=== PATIENT | male | born 1965 | race Caucasian/White ===

== ENCOUNTER → 2021-12-24 07:26 | Outpatient (CLI) | payer OTHER, SELFPAY ==
--- NOTE | ~2021-12-24 | XR_ITS ---
EXAMINATION: XR shoulder LT min 2V DATE: 12/24/2021 07:50 INDICATION: Left shoulder pain. TECHNIQUE: 4 views of left shoulder were obtained. COMPARISON: None. FINDINGS: Bone alignment is normal. No fracture. There is mild osteoarthritis of glenohumeral joint a nd severe osteoarthritis of acromioclavicular joint. IMPRESSION: 1. Polyarticular osteoarthritis. Reviewed, dictated and finalized at location A. E TELEVISION PROGRAM DIRECTOR
== END ==
PROVIDERS: PCP Family Medicine; Visit Provider Nurse Practitioner Family
DX: M19.012 Primary osteoarthritis, left shoulder (principal)
CPT/HCPCS: 73030

== ENCOUNTER 2023-07-06 03:45 | Observation (INO) | payer BC, SELFPAY ==
[2023-07-06] VITALS (33 sets, daily range): BP systolic 90–118; BP diastolic 36–64; PULSE 53–75; RESP 12–21; TEMP 35.5–36.5; O2SAT 98–100
--- NOTE | ~2023-07-06 | US_ITS ---
US abdomen limited INDICATION: Chest pain. Elevated bilirubin. PROCEDURE: Realtime right upper abdominal ultrasound. COMPARISON: Ultrasound dated 01/08/2019 FINDINGS: The pancreas is normal without focal mass or pancreatic ductal dilation. Liver echotexture is normal without focal mass or intrahepatic biliary dilatation. There is normal directional flow i n the portal vein. The gallbladder is normal without stones, gallbladder wall thickening or pericholecystic fluid. Comm on bile duct measures 3 mm. No sonographic Billings's sign. IMPRESSION: 1: Normal limited abdominal ultrasound. Reviewed, dictated and finalized at location B.
--- NOTE | ~2023-07-06 | XR_ITS ---
Portable chest x-ray Comparison: 04/12/2007 Clinical History: Chest pain Findings: Lungs are clear, without focal consolidation or pleural effusion. Cardiomediastinal silho uette is stable. Bones and soft tissues are unremarkable. Impression: Normal chest. Reviewed, dictated and finalized at location . Impression: Normal chest.
--- NOTE | 2023-07-06 03:49 | ECG_ITS ---
Measurements Intervals [place] Rate: 54 P: 42 MA: 236 QRS: 9 QRSD: 110 T: 46 QT: 425 QTc: 406 Interpretive Statements SINUS BRADYCARDIA WITH FIRST DEGREE AV BLOCK ST ELEVATION IN ANTEROLAT/HIGH LAT LEADS, PROBABLY EARLY REPOLARIZATION BASELINE WANDER- I, II, III, AVR, AVL, AVF, V1, V4 BORDERLINE ECG NO PREVIOUS ECG AVAILABLE FOR COMPARISON Electronically Signed On 07-06-2023 6:33:37 CDT by Carlyle Ball D.O.
[2023-07-06] MEDS: SODIUM CHLORIDE 0.9% IV 1,000 ML 999 ML IV CONT ×3 (04:18→05:18)
--- NOTE | 2023-07-06 04:26 | PC.NURSE ---
Patient's blood pressure began to drop to 80s/50s. Notified EDP Dr. Mohan who advised to not give the morphine, give another 1,000mL normal saline, and fentanyl 50mcg IVP.
[2023-07-06 04:28] LABS: Basophils Absolute Auto 0.1 K/mm3 (0.0-0.1); Basophils Percent Auto 0.8 % (0.2-1.2); Eosinophils Absolute Auto 0.3 K/mm3 (0-0.3); Eosinophils Percent Auto 1.8 % (0-4.4); Hematocrit 47.1 % (42.0-52.0); Hemoglobin 15.7 g/dL (14.0-18.0); Immature Granulocyte Absolute 0.08 K/mm3 (0.00-0.031); Immature Granulocyte Percent A 0.6 % (0-0.5); Lymphocytes Absolute Auto 2.12 K/mm3 (0.9-3.2); Lymphocytes Percent Auto 14.9 % (18.3-44.2); Mean Corpuscular HGB Conc 33.3 g/dl (32-36); Mean Corpuscular Hemoglobin 29.1 pg (26-34); Mean Corpuscular Volume 87.2 fl (80-100); Mean Platelet Volume 10.9 fl (7.4-10.4); Monocytes Absolute Auto 0.6 K/mm3 (0.1-0.6); Monocytes Percent Auto 4.1 % (2.6-8.5); Neutrophils Absolute Auto 11.1 K/mm3 (1.3-6.7); Neutrophils Percent Auto 77.8 % (45.5-73.1); Platelet Count Result 228 k/mm3 (150-375); White Blood Count 14.3 K/mm3 (4.5-10.0)
[2023-07-06] MEDS: fentaNYL CITRATE INJ (*CRX) 100 MCG/2 ML VIAL 50 MCG IV PUSH (04:29)
[2023-07-06] MEDS: ASPIRIN 81 MG CHEWABLE TABLET 324 MG PO (04:30)
[2023-07-06 04:38] LABS: Alanine Aminotransferase 42 U/L (6-50); Albumin Level 3.9 g/dL (3.5-5.1); Alkaline Phosphatase 59 U/L (38-126); Anion Gap 8 mmol/L (8-16); Aspartate Amino Transferase 72 U/L (17-59); Bilirubin,Total 1.7 mg/dL (0.2-1.3); Blood Urea Nitrogen 19 mg/dL (9-20); Calcium 9.1 mg/dL (8.4-10.2); Carbon Dioxide 25 mmol/L (22-30); Chloride 106 mmol/L (98-107); Estimated CRCL calculation 96 ml/min; Estimated Glomerular Filt Rate > 60; Glucose 132 mg/dL (65-110); Lipase 85 U/L (23-300); Potassium 3.7 mmol/L (3.4-5.0); Sodium 139 mmol/L (137-145)
[2023-07-06 04:39] LABS: INR 1.1; Prothrombin Time 14.4 Seconds (11.1-14.7)
[2023-07-06 04:40] LABS: Partial Thromboplastin Time 22.4 SECONDS (22.3-36.8)
[2023-07-06 04:50] LABS: Troponin I < 0.012 ng/mL (0.000-0.034)
--- NOTE | 2023-07-06 05:11 | ED.GENADULT ---
HPI - General Adult General Chief complaint: Chest Pain Stated complaint: chest pain Time Seen by Provider: 07/06/23 03:56 History of Present Illness HPI narrative: Patient 57-year-old gentleman who presents the emergency department with chief complaint of chest pain. Patient reports that he woke up from sleep this evening was having a sharp pressure sensation in the middle portion of his chest patient reports he got diaphoretic reports that the symptoms were not improved by anything and in fact worsened upon arrival to the emergency department. Patient denies radiation reports no prior history of cardiac disease reports that several years ago he had a cardiac stress test that was negative Related Data Home Medications Medication Instructions Recorded Confirmed multivitamin 1 tablet PO DAILY 06/02/21 01/26/22 polyethylene glycol 3350 17 gram 17 g PO DAILY PRN Constipation 06/02/21 01/26/22 oral powder packet (Miralax) Allergies Allergy/AdvReac Type Severity Reaction Status Date / Time No Known Allergies Allergy Verified 01/25/22 15:16 Review of Systems Review of Systems: A 10 system review of systems was completed on the patient and is negative except for what is stated in the HPI. Nursing and ancillary documentation was reviewed. 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 HEAD: Normocephalic, atraumatic. EYES: PERRLA and EOMI. ENT: Nares clear, no rhinorrhea or epistaxis. Mucous membranes moist. NECK: Supple. CHEST: Clear to auscultation. No respiratory distress. HEART: Regular rate and rhythm. No murmur heard. Normal peripheral pulses. ABDOMEN: Soft, nontender, nondistended, normal active bowel sounds. EXTREMITIES: Normal range of motion. No edema. SKIN: Warm, dry, no rash. NEURO: No focal deficits. Alert and oriented x3. PSYCH: Normal mood and affect. Course Vital Signs Vital signs: Vital Signs Temperature 36.3 C L 07/06/23 03:53 Pulse Rate 56 L 07/06/23 03:53 Respiratory Rate 12 07/06/23 03:53 Blood Pressure 104/61 07/06/23 03:53 Pulse Oximetry 100 07/06/23 03:53 Oxygen Delivery Room Air 07/06/23 03:53 Temperature 35.5 C L 07/06/23 05:52 Pulse Rate 72 07/06/23 05:52 Respiratory Rate 12 07/06/23 05:52 Blood Pressure 93/43 L 07/06/23 05:52 Pulse Oximetry 98 07/06/23 05:52 Oxygen Delivery Room Air 07/06/23 04:[address] [facility] Narrative Medical decision making narrative: Differential diagnosis includes ACS, atypical chest pain, vasovagal episode, electrolyte abnormality, Laboratory studies were obtained and the patient which showed a white blood cell count of 14.3 electrolytes were within normal limits liver enzymes showed a bilirubin of 1.7 and AST of 72 initial troponin is less than 0.012 Chest x-ray showed no evidence of focal infiltrate EKG showed nonspecific ST segment abnormalities with less than [address] elevation and no reciprocal changes. The last EKG we have in the system is from 2019 is
--- NOTE | 2023-07-06 05:14 | PC.NURSE ---
Patient's 2 L of normal saline finished. Patients pressures now in the 90s/60s. Notified EDP Dr. Mohan who verbally ordered another liter of normal saline.
[2023-07-06] MEDS: SODIUM CHLORIDE 0.9% IV 1,000 ML 125 ML IV CONT (06:05)
[2023-07-06 07:16] LABS: Troponin I < 0.012 ng/mL (0.000-0.034)
--- NOTE | 2023-07-06 08:29 | ECG_ITS ---
Measurements Intervals [place] Rate: 59 P: 49 FL: 223 QRS: -1 QRSD: 107 T: 48 QT: 438 QTc: 437 Interpretive Statements SINUS BRADYCARDIA WITH FIRST DEGREE AV BLOCK INCOMPLETE RIGHT BUNDLE BRANCH BLOCK BORDERLINE ECG COMPARED TO ECG 07/06/2023 03:53:22 NO SIGNIFICANT CHANGES Electronically Signed On 07-06-2023 8:37:54 CDT by Carlyle Ball D.O.
[2023-07-06 10:02] LABS: Troponin I < 0.012 ng/mL (0.000-0.034)
--- NOTE | 2023-07-06 12:12 | PC.NURSE ---
Emily, hospitalist, paged and asked about a diet order and cardiology consult. Will await orders.
--- NOTE | 2023-07-06 13:02 | PC.NURSE ---
Hospitalist, Emily, called again as patient is verbalizing request to leave. Education provided and patient agreeing to wait a bit longer to speak to provider.
--- NOTE | 2023-07-06 13:46 | PC.NURSE ---
Pt leaving AMA, PIVx2 removed. Pt educated and hospitalist, Emily, notified
--- NOTE | 2023-07-13 01:13 | PM.EVENT ---
Event Note Event Note Event Note: Patient left AMA at 1350 on 07/06/23. ED requested admission. Patient did not want to stay and wait for bed placement. Tracie Howe RN discussed risks of not staying with patient. AMA paperwork signed and filed. No HPI or exam done by hospitalist.
== END 2023-07-06 15:25 | disposition left against medical advice (07) ==
LOC: ANHED 05:57 → ANHIMU 15:25
PROVIDERS: Admitting Provider Internal Medicine; Emergency Provider Emergency Medicine; PCP Family Medicine; Visit Provider Internal Medicine
DX: R07.9 Chest pain, unspecified (principal); R00.1 Bradycardia, unspecified; I44.0 Atrioventricular block, first degree; I45.10 Unspecified right bundle-branch block; K59.00 Constipation, unspecified; Z79.899 Other long term (current) drug therapy; Z53.29 Procedure and treatment not carried out because of patient's decision for other reasons
CPT/HCPCS: 36415; 71045; 76705; 80053; 83690; 84484; 85025; 85610; 85730; 93005; 96361; 96374; 99285; A9270; G0378; J3010; J7030

== ENCOUNTER 2023-08-01 07:29 | Outpatient (CLI) | payer BC, SELFPAY ==
--- NOTE | ~2023-08-01 | CT_ITS ---
CT of the Abdomen and Pelvis: Indication: Abdominal swelling/mass Technique: 2.5 mm axial scans were obtained through the abdomen and pelvis following intravenous adm inistration of 100 cc of Omnipaque 350. Dose reduction technique was used on this scan by utilizing a utomated exposure control and iterative reconstruction technique. The dose-length product (DLP) was 4 29.52 mGy-cm. Findings: Scans through the lung bases are unremarkable. The liver, spleen, pancreas, gallbladder, adrenals and kidneys are within normal limits. No evidence of aortic aneurysm. No lymphadenopathy. No bowel obstruction or bowel wall thickening. There is no evidence to suggest acute appendicitis. Images through the pelvis were performed. Urinary bladder unremarkable. No pelvic mass seen. Moderate sized fat-containing left inguinal hernia noted. Small fat-containing right inguinal hernia present, which also contains a small amount of fluid. No ascites. Impression: Moderate fat-containing left inguinal hernia. Small fat-containing right inguinal hernia, which also contains a small amount of fluid. Correlate fo r incarceration/strangulation. Reviewed, dictated and finalized at location M. Impression: Moderate fat-containing left inguinal hernia. Small fat-containing right inguinal hernia, which also contains a small amount of fluid. Correlate for incarceration/strangulation.
== END 2023-08-01 07:30 | disposition home or self-care (01) ==
PROVIDERS: PCP Family Medicine; Visit Provider Surgery
DX: R19.09 Other intra-abdominal and pelvic swelling, mass and lump (principal); K40.90 Unilateral inguinal hernia, without obstruction or gangrene, not specified as recurrent
CPT/HCPCS: 74177; Q9967

== ENCOUNTER 2023-08-16 02:02 | Day surgery (SDC) | payer BC, SELFPAY ==
[2023-08-03 14:13] VITALS: BMI 23.1
[2023-08-16 06:18] VITALS: BP 117/74; PULSE 63; RESP 17; TEMP 36.5; O2SAT 98; BMI 23.2
[2023-08-16] MEDS: LACTATED RINGERS 1,000 ML 150 ML IV CONT (06:32)
--- NOTE | 2023-08-16 07:22 | WPDANESEPPF ---
Anes - Initial Pre Proc Eval Procedure: Operation Date: 08/16/23 07:30 Proposed Procedures p Colonoscopy - Adilson Gomez MD Date/Time: 08/16/23 07:22 Surgeon: Adilson Gomez MD Pre Op Diagnosis: hx of colon polyps Patient Data Age: 57 Gender: M Height: 1.83 m Weight: 77.8 kg Last Vital Signs Temp 97.7 F 08/16/23 06:18 Pulse 63 08/16/23 06:18 Resp 17 08/16/23 06:18 BP 117/74 08/16/23 06:18 Pulse Ox 98 08/16/23 06:18 O2 Del Method Room Air 08/16/23 06:18 Allergies Allergy/AdvReac Type Severity Reaction Status Date / Time No Known Allergies Allergy Verified 08/03/23 14:14 Home Medications Medication Instructions Recorded Confirmed Type multivitamin 1 tablet PO DAILY 06/02/21 08/03/23 History omega-3 acid ethyl esters 1 gram 1 cap PO DAILY 07/09/23 08/03/23 History capsule ferrous sulfate 325 mg (65 mg 325 mg PO DAILY 07/19/23 08/03/23 History iron) tablet (Feosol) Patient hx anesthesia problems: none Family hx anesthesia problems: none Results Review: All pre-operative results and documents have been reviewed as part of the pre-operative evaluation. [facility] Past Medical History Medical History BMI 24.0-24.9, adult Left inguinal hernia Left shoulder pain Screening for lipid disorders Screening for prostate cancer Surgical History Surgical History H/O knee surgery History of rotator cuff surgery Family History Family History Father Malignant neoplasm of prostate Mother Asthma Unknown Allergies Sibling No problems noted. Social History Social History Social History: caffeine use: 1 cup coffee daily Smoking packs per day: 1 Smoking cigarettes per day: 20.0 Years smoked: 5 Smoking pack-years: 5.00 Smoking status: Former smoker Tobacco type: cigarettes Second hand tobacco smoke exposure: Yes Smoking end date: 10/22/95 Alcohol intake: never Substance use: never Substance use type: does not use Lack of Transportation: No Lack of Food: Never True Current Housing: I Have Housing Concerned About Future Housing: No Difficulty Paying Gas/Electric Bills: No Difficulty Paying for Meds: No Currently Unemployed: No Education: Bachelor's Degree Difficulty w/ Childcare or Family Care: No Living arrangements: with family Occupation/Education: occupation 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 Informed Consent: The patient's anesthetic plan and its attendant risks and benefits were discussed with the patient/family/POA. Questions were solicited and answers provided to the satisfaction of the patient/family/POA.
--- NOTE | 2023-08-16 07:26 | PM.HPGS ---
History of Present Illness History of Present Illness Consent: Risks, benefits, and alternatives have been discussed and questions answered. Patient agrees to proceed with procedure. Chief complaint: hx of colon polyps Narrative: Patrice Shrestha is a 57 year old male Presents for screening colonoscopy. Patient's current weight appetite and bowel movements are normal. Patient denies abdominal pain. He has had no bleeding. Family history noncontributory. Patient does have a history of adenomatous colon polyp removed from the colon in 2017. Patient presents today for surveillance screening colonoscopy. Review of Systems Review of Systems: Review of systems noncontributory. [facility] Past Medical History Medical History BMI 24.0-24.9, adult Left inguinal hernia Left shoulder pain Screening for lipid disorders Screening for prostate cancer Surgical History Surgical History H/O knee surgery History of rotator cuff surgery Family History Family History Father Malignant neoplasm of prostate Mother Asthma Unknown Allergies Sibling No problems noted. Social History Social History Social History: caffeine use: 1 cup coffee daily Smoking packs per day: 1 Smoking cigarettes per day: 20.0 Years smoked: 5 Smoking pack-years: 5.00 Smoking status: Former smoker Tobacco type: cigarettes Second hand tobacco smoke exposure: Yes Smoking end date: 10/22/95 Alcohol intake: never Substance use: never Substance use type: does not use Lack of Transportation: No Lack of Food: Never True Current Housing: I Have Housing Concerned About Future Housing: No Difficulty Paying Gas/Electric Bills: No Difficulty Paying for Meds: No Currently Unemployed: No Education: Bachelor's Degree Difficulty w/ Childcare or Family Care: No Living arrangements: with family Occupation/Education: occupation 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 Gender identity (if verbalized by the patient): Male Spiritual care concerns: No Meds Home Medications and Allergies Home Medications Medication Instructions Recorded Confirmed Type multivitamin 1 tablet PO DAILY 06/02/21 08/03/23 History omega-3 acid ethyl esters 1 gram 1 cap PO DAILY 07/09/23 08/03/23 History capsule ferrous sulfate 325 mg (65 mg 325 mg PO DAILY 07/19/23 08/03/23 History iron) tablet (Feosol) Allergies Allergy/AdvReac Type Severity Reaction Status Date / Time No Known Allergies Allergy Verified 08/03/23 14:14 Vital Signs Vital Signs - 24 hr 08/16/23 06:18 Temperature 97.7 F Pulse Rate 63 Respiratory Rate 17 Blood Pressure 117/74 Pulse Oximetry 98 Oxygen Delivery Room Air Exam Narrative: Physical exam reveals patient to be alert. Vital signs stable. HEENT exam is unremarkable. Patient is anicteric. Lungs are clear to auscultation and percussion. Heart is without murmur or extra sounds. Abdomen bowel sounds are present soft nontender with no organomegaly. Digital external rectal exam is normal. Assessment and Plan Assessment and plan (1) History of colon polyps: Code(s): Z86.010 - Personal history of colonic polyps Status: Acute Assessment and Plan: Patient has history of adenomatous colon polyp removed from colon 2016. Plan for surveillance colonoscopy at this time. Further recommendations will be given after endoscopy.
[2023-08-16 07:46] VITALS: BP 98/65; PULSE 70; RESP 18; O2SAT 97
[2023-08-16 07:56] VITALS: BP 103/77; PULSE 65; RESP 20; O2SAT 98
[2023-08-16 08:06] VITALS: BP 110/76; PULSE 60; RESP 16; O2SAT 98
== END 2023-08-16 08:18 | disposition home or self-care (01) ==
PROVIDERS: PCP Family Medicine; Visit Provider Internal Medicine Gastroenterology
PROC: 0DJD8ZZ Inspection of Lower Intestinal Tract, Via Natural or Artificial Opening Endoscopic (ICD-10-PCS; CPT 45378; principal; 2023-08-16 07:30)
DX: Z12.11 Encounter for screening for malignant neoplasm of colon (principal); K64.8 Other hemorrhoids; Z86.010 Personal history of colon polyps; Z87.891 Personal history of nicotine dependence
CPT/HCPCS: 45378; J2704; J7120

== ENCOUNTER 2023-10-05 03:08 | Day surgery (SDC) | payer BC, SELFPAY ==
[2023-10-03 10:39] VITALS: BMI 23.7
--- NOTE | 2023-10-03 10:45 | PC.NURSE ---
Report to the Outpatient Waiting Room, entrance under the green pavilion located off [facility], at time 0730 on date 10/05/23. Planned Procedure Time: 0930. Time changes happen often and if your time is changed the preop area will call you the afternoon before. - You and your visitor will be asked to self-screen and do not enter if you have any COVID symptoms. - A mask is optional within the hospital at this time. Patients may have clear liquids (water, carbonated beverages, clear teas, apple juice) until 3 hours prior to surgery with a maximum of 20 ounces. - No food from midnight until time of surgery Take the following medications with a SIP of water the morning of surgery: NONE DO NOT STOP ANY OF YOUR OTHER PRESCRIPTION MEDICATIONS PRIOR TO SURGERY ?EXCEPT THE FOLLOWING Medications to discontinue per physician: VITAMINS/SUPPLEMENTS Date to take last dose: NO MORE UNTIL AFTER SURGERY Please no make-up, nail [place], hairspray, perfume, deodorant, or body powder the day of surgery. No jewelry (including any body piercings) or valuables the day of surgery, leave them at home. Please take a shower or bath the night before, or the morning of, surgery with an antibacterial soap. Wear comfortable, loose fitting clothing. - Jewelry must be removed prior to entering the operating room. Rings and piercings that are not removed may be cut off. - The hospital will not accept responsibility for valuables. - Please leave all valuables, including medications, at home the day of surgery. If you are going home after surgery, a licensed special events driver must drive you home. - NO public transportation without another adult if you receive anesthesia. - We recommend that an adult stay with you for 24 hours following discharge. - We also recommend that you do not drive, make important decision, drink alcoholic beverages, or take any drugs that were not prescribed by your health care provider for at least 24 hours after your discharge time. Follow any additional instructions given to you from your surgeon. If you or anyone in your household have experienced Covid symptoms in the past week, please notify your surgeon or the nurse liaison at the phone number below for possible testing. Telephone instructions given to PT JODY BARRAZA and asked if any additional questions and then verbalized understanding. Patient advised to call surgeon office or pre surgery nurse liaison [phone] if any additional questions.
--- NOTE | 2023-10-04 11:21 | WPDANESEPPF ---
Anes - Initial Pre Proc Eval Procedure: Operation Date: 10/05/23 09:30 Proposed Procedures p Robotic Assisted Laparoscopic Right Femoral Hernia with Mesh, Left Inguinal Hernia Repair with Mesh, Possible Open - Eliazar Raya MD Date/Time: 10/04/23 11:21 Surgeon: Eliazar Raya MD Pre Op Diagnosis: Rt Fem Hernia, Lt Ing Hernia Patient Data Age: 58 Gender: M Height: 1.83 m Weight: 79.4 kg Allergies Allergy/AdvReac Type Severity Reaction Status Date / Time No Known Allergies Allergy Verified 10/16/23 15:36 Home Medications Medication Instructions Recorded Confirmed Type multivitamin 1 tablet PO DAILY 06/02/21 10/16/23 History omega-3 acid ethyl esters 1 gram 1 cap PO DAILY 07/09/23 10/16/23 History capsule ferrous sulfate 325 mg (65 mg 325 mg PO DAILY 07/19/23 10/16/23 History iron) tablet (Feosol) calcium carbonate 600 mg calcium 600 mg PO DAILY 10/03/23 10/16/23 History (1,500 mg) tablet (Calcium) Patient hx anesthesia problems: none Family hx anesthesia problems: none Results Review: All pre-operative results and documents have been reviewed as part of the pre-operative evaluation. [facility] Past Medical History Medical History BMI 24.0-24.9, adult Left inguinal hernia Left shoulder pain Screening for lipid disorders Screening for prostate cancer Surgical History Surgical History (Updated 10/16/23 @ 15:38 by Yesica Underwood CMA) H/O inguinal hernia repair H/O knee surgery History of femoral hernia repair History of rotator cuff surgery Family History Family History Father Malignant neoplasm of prostate Mother Asthma Unknown Allergies Sibling No problems noted. Social History Social History Social History: caffeine use: 1 cup coffee daily Smoking packs per day: 1 Smoking cigarettes per day: 20.0 Years smoked: 5 Smoking pack-years: 5.00 Smoking status: Former smoker Tobacco type: cigarettes Second hand tobacco smoke exposure: Yes Smoking end date: 10/22/95 Alcohol intake: never Substance use: never Substance use type: does not use Lack of Transportation: No Lack of Food: Never True Current Housing: I Have Housing Concerned About Future Housing: No Difficulty Paying Gas/Electric Bills: No Difficulty Paying for Meds: No Currently Unemployed: No Education: Bachelor's Degree Difficulty w/ Childcare or Family Care: No Living arrangements: with family Occupation/Education: occupation 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 Informed Consent: The patient's anesthetic plan and its attendant risks and benefits were discussed with the patient/family/POA. Questions were solicited and answers provided to the satisfaction of the patient/family/POA.
[2023-10-05] VITALS (10 sets, daily range): BP systolic 104–120; BP diastolic 59–73; PULSE 63–83; RESP 12–20; TEMP 36.6–36.8; O2SAT 97–100
[2023-10-05] MEDS: ACETAMINOPHEN 500 MG TABLET 1000 MG PO (08:24)
[2023-10-05] MEDS: LACTATED RINGERS 1,000 ML 30 ML IV CONT ×3 (08:30→15:20)
[2023-10-05] MEDS: KETOROLAC 15 MG/ML VIAL (*BKC) IV PUSH ×2 (08:32→14:23)
--- NOTE | 2023-10-05 09:09 | P.PNAN_ITS ---
Anes - Eval Final PreProcedure Day of Procedure 10/05/23 09:09 Patient weight: normal Heart: regular rate and rhythm Lungs: clear to auscultation Airway: Mallampati scale class II Neurological: alert and oriented Last oral intake: >/= 8 hours ASA classification: II Emergent: no Anesthetic plan: proceed Anesthesia type and monitoring: general ETT and standard monitoring Results Review: All pre-operative results and documents have been reviewed as part of the pre- operative evaluation. Informed Consent: The patient's anesthetic plan and its attendant risks and benefits were discussed with the patient/family/POA. Questions were solicited and answers provided to the satisfaction of the patient/family/POA.
--- NOTE | 2023-10-05 09:36 | SUR.PREOP ---
0930-Pt and aware previous surgeon delays Dr. Raya until [id number].
--- NOTE | 2023-10-05 09:58 | PM.IMHP ---
H&P: HPI History of Present Illness Date/Time: 10/05/23 09:58 Chief Complaint: Left inguinal hernia, Right femoral hernia Narrative: Mr. Shrestha presents to the office at the request of Dr. Mix for evaluation.? Recently, he noticed intermittent tenderness and constant bulging in his right groin.? Unable to reduce the bulge.? He is and avid bike rider, which he states causes him discomfort in his groin.? He denies N/V, change in bowel habits, urinary difficulty, or other obstructive symptoms.? He has a known left inguinal hernia that he had evaluated a couple years ago.? Laparoscopic repair was recommended, but for personal reason, he deferred scheduling at that time.? He has noticed slight increase in size, but hernia is still nontender and reducible. Review of Systems Review of Systems: The remainder of the review of systems to include constitutional, HEENT, cardiovascular, respiratory, GI, , integumentary, musculoskeletal, endocrine, immunologic, hematologic, psychiatric, and neurologic are all negative except for which is mentioned above in the HPI. [facility] Past Medical History Medical History BMI 24.0-24.9, adult Left inguinal hernia Left shoulder pain Screening for lipid disorders Screening for prostate cancer Surgical History Surgical History H/O knee surgery History of rotator cuff surgery Family History Family History Father Malignant neoplasm of prostate Mother Asthma Unknown Allergies Sibling No problems noted. Social History Social History Social History: caffeine use: 1 cup coffee daily Smoking packs per day: 1 Smoking cigarettes per day: 20.0 Years smoked: 5 Smoking pack-years: 5.00 Smoking status: Former smoker Tobacco type: cigarettes Second hand tobacco smoke exposure: Yes Smoking end date: 10/22/95 Alcohol intake: never Substance use: never Substance use type: does not use Lack of Transportation: No Lack of Food: Never True Current Housing: I Have Housing Concerned About Future Housing: No Difficulty Paying Gas/Electric Bills: No Difficulty Paying for Meds: No Currently Unemployed: No Education: Bachelor's Degree Difficulty w/ Childcare or Family Care: No Living arrangements: with family Occupation/Education: occupation 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[employer] Gender identity (if verbalized by the patient): Male Spiritual care concerns: No Meds Home Medications and Allergies Home Medications Medication Instructions Recorded Confirmed Type multivitamin 1 tablet PO DAILY 06/02/21 10/05/23 History omega-3 acid ethyl esters 1 gram 1 cap PO DAILY 07/09/23 10/05/23 History capsule ferrous sulfate 325 mg (65 mg 325 mg PO DAILY 07/19/23 10/05/23 History iron) tablet (Feosol) calcium carbonate 600 mg calcium 600 mg PO DAILY 10/03/23 10/05/23 History (1,500 mg) tablet (Calcium) Allergies Allergy/AdvReac Type Severity Reaction Status Date / Time No Known Allergies Allergy Verified 10/03/23 10:38 Vital Signs Vital Signs - 24 hr 10/05/23 07:55 Temperature 36.6 C Pulse Rate 68 Respiratory Rate 20 Blood Pressure 119/73 Pulse Oximetry 100 Oxygen Delivery Room Air Exam Const: General: comfortable and no acute distress HENMT: Ears: TM's normal bilaterally Face/Nose/Sinus: Normal nares present Mouth: Yes moist mucous membranes Eyes: General: appearance normal, both eyes and all related structures Sclera: sclerae normal Pupils: Equal, round and reactive pupils present EOM: EOMs intact bilaterally Neck: Neck: supple and no JVD Resp: Effort & Inspection: normal respiratory effort Auscultation: clear to auscultation bilaterally Cardio: Rate: regular rate
--- NOTE | 2023-10-05 10:23 | WPDHPUPDATE1 ---
History and Physical Update Update Date/Time: 10/05/23 10:23 History and Physical has been reviewed, including an updated exam of the patient. There are NO changes in the patient's condition. Risks, benefits, and alternatives have been discussed and questions answered. Patient agrees to proceed with procedure.
--- NOTE | 2023-10-05 10:31 | SUR.PREOP ---
1015-Pt informed by Dr. Raya, further delay until 11:30.
[2023-10-05] MEDS: ceFAZolin 2 GM/D5W 50 ML 2 GM/50 ML BAG IVPB (11:36)
[2023-10-05] MEDS: LIDO 1%/EPINEPHRINE 1:100,000 20 ML VIAL 30 ML INFILTRATE (14:41)
--- NOTE | 2023-10-05 15:00 | W.PM.PROC2 ---
Procedure Note - Detailed Date of Procedure 10/05/23 Pre-op Diagnosis 1. Incarcerated right femoral hernia. 2. Reducible indirect left inguinal hernia. Post-op Diagnosis Same Procedure Performed Robotic assisted laparoscopic left inguinal hernia repair with Bard 3D mid weight mesh. Robotic assisted laparoscopic right incarcerated femoral hernia repair with Bard 3D mid weight mesh. Surgeon Eliazar Raya MD Medical Accounting Clerk Adilson Gaspar, EMILE Anesthesia General Indications Patient has had a reducible left inguinal hernia for several years and is now enlarging and becoming symptomatic with pain. Remains reducible. He also has an incarcerated right femoral hernia which had been asymptomatic and seen on CT scan. Presents now for repair both these hernias via robotic assisted laparoscopic approach with mesh. Findings Patient had a very large right femoral hernia which had preperitoneal fat and portions of his omentum incarcerated within the defect. There was a large left indirect inguinal hernia without any incarcerated contents. Description of Procedure After informed consent was obtained patient brought to the operating room was placed supine position and general endotracheal anesthesia was administered. The abdomen bilateral groin regions were then prepped and draped usual sterile fashion. A time-out was then performed correctly identifying the patient as well as procedure to be performed and verified he was given perioperative IV antibiotics. I then started by placing a 10mm Optiview port in left upper quadrant and in the end with a direct optical insertion. Once inside the abdomen insufflated to adequate pneumoperitoneum of 15mmHg of CO2. I then placed additional mm robotic trocar ports across the mid abdominal region. She into the pelvis I saw a large indirect left inguinal hernia without any incarcerated contents. The right incarcerated femoral hernia had a portion the patient's omentum within the hernia as well as some preperitoneal fat but no bowel involvement. No evidence of a right direct or indirect inguinal hernia was seen. I then had Jake robot brought to the patient's bedside and the robotic arms were attached to the robotic ports. Robotic instruments were then advanced into the abdomen under direct visualization. I then sat down at the robotic console after scrubbing out and perform the dissection robotically. I 1st started by making a preperitoneal flap starting the lower abdominal wall and extending it to the right and left sides anterior medial to the right and left anterior superior iliac spines. I then continued to dissect in this preperitoneal space distally taking down the dome of the bladder dissecting down to the pubic symphysis in the bilateral pubic tubercles. I then started my dissection laterally from each side and on the left side I identified the inferior epigastric vessels and dissected the indirect inguinal hernia sac out of the inguinal canal. This is done was a hook cautery dissection and the vas deferens and testicular vessels were preserved without injury I dissected the peritoneal flap proximally up onto the psoas muscle until the vas deferens and testicular vessels split. I dissected down into the space of Retzius on the left side below the pubic tubercle for a couple of cm. I then continued my dissection to the right side encountered the incarcerated contents of the right femoral hernia. I then reduced the omentum out of the right femoral hernia and then proceeded to dissect the peritoneal flap back up onto the psoas muscle. No direct or indirect component to the hernia. As I use the hernia sac out of the femoral defect a couple holes were made in the hernia sac but the right external iliac vein and the right femoral vein were seen and the hernia sac was dissected away from the vessel without any injury to the vessel or any bleeding. I then dissected the peritoneal flap proximally up onto the psoas muscle and made sure t
[2023-10-05] MEDS: ONDANSETRON INJ 4 MG/2 ML VIAL IV PUSH (15:14)
[2023-10-05] MEDS: fentaNYL CITRATE INJ (*CRX) 100 MCG/2 ML VIAL 25 MCG IV PUSH ×4 (15:37→15:50)
[2023-10-05] MEDS: oxyCODONE HCL (*CRX) 5 MG TAB IR PO (17:28)
== END 2023-10-05 17:30 | disposition home or self-care (01) ==
PROVIDERS: PCP Family Medicine; Visit Provider Surgery
PROC: 8E0Y4CZ Robotic Assisted Procedure of Lower Extremity, Percutaneous Endoscopic Approach (ICD-10-PCS; CPT 49650; principal; 2023-10-05 09:30)
DX: K41.30 Unilateral femoral hernia, with obstruction, without gangrene, not specified as recurrent (principal); K40.90 Unilateral inguinal hernia, without obstruction or gangrene, not specified as recurrent; Z87.891 Personal history of nicotine dependence
CPT/HCPCS: 49650; 49659; S2900; 36415; 86850; 86900; 86901; A9270; C1781; J0690; J1100; J1885; J2250; J2405; J2704; J3010; J7120